=== PATIENT | male | born 1970 | race Caucasian/White ===

== ENCOUNTER → 2016-05-27 | Outpatient (CLI) | payer OTHER ==
[2016-05-29 03:36] LABS: Free Testosterone(Direct) 9.3 pg/mL (6.8-21.5)
[2016-05-29 12:36] LABS: Testosterone, Total, LC/MS 361.5 ng/dL (348.0-1197.0)
== END ==
LOC: CARL-LAB 10:30
PROVIDERS: Urology
DX: E29.1 Testicular hypofunction (principal)

== ENCOUNTER → 2017-03-18 | Outpatient (CLI) | payer OTHER ==
[2017-03-22 12:36] LABS: Free Testosterone(Direct) 2.7 pg/mL (6.8-21.5)
[2017-03-24 08:46] LABS: Testosterone, Total, LC/MS 196.1 ng/dL (264.0-916.0)
== END ==
LOC: CARL-LAB 11:53
PROVIDERS: Urology
DX: E29.1 Testicular hypofunction (principal)